=== PATIENT | male | born 1970 | race Caucasian/White ===

== ENCOUNTER 2020-09-22 11:26 | Emergency (ER) | payer SELFPAY ==
[~2020-09-22] VITALS: Ht 180.3 cm; Wt 106.6 kg
[2020-09-22 13:02] VITALS: BP 155/93
== END 2020-09-22 15:37 | disposition home or self-care (01) ==
LOC: ER 11:26
DX: S46.811A Strain of other muscles, fascia and tendons at shoulder and upper arm level, right arm, initial encounter (principal); M62.838 Other muscle spasm; I10 Essential (primary) hypertension; Z98.890 Other specified postprocedural states; W01.0XXA Fall on same level from slipping, tripping and stumbling without subsequent striking against object, initial encounter; Y93.89 Activity, other specified; Y92.89 Other specified places as the place of occurrence of the external cause; Y99.8 Other external cause status
CPT/HCPCS: 72040; 73030